=== PATIENT | male | born 1950 | race Caucasian/White ===

== ENCOUNTER 2019-10-26 06:00 | Outpatient (RCR) | payer MEDICARE, SELFPAY | END 2019-11-25 00:01 | LOC: TPT 06:00 | PROVIDERS: Family Provider Nurse Practitioner Family; Visit Provider Family Medicine | DX: M25.511 Pain in right shoulder (principal) | CPT/HCPCS: 97110 ×5; 97140 ×4; 97530; G0283 ×4 ==

== ENCOUNTER 2019-11-26 06:00 | Outpatient (RCR) | payer MEDICARE, SELFPAY | END 2019-12-08 23:00 | disposition home or self-care (01) | LOC: TPT 06:00 | PROVIDERS: Family Provider Family Medicine; PCP Family Medicine; Visit Provider Family Medicine | DX: M25.511 Pain in right shoulder (principal) | CPT/HCPCS: 97032; 97110; 97530 ==

== ENCOUNTER 2019-12-25 09:49 | Emergency (ER) | payer MEDICARE, SELFPAY ==
[2019-12-25 09:56] VITALS: BP 154/80; PULSE 98; RESP 20; TEMP 36.6; O2SAT 96; BMI 24.4
--- NOTE | 2019-12-25 10:07 | ED_ITS ---
Entered by Brian Bailey, acting as scribe for Farhan Hurtado DO HPI - Neuro Symptoms/Deficit General: Chief Complaint: Neuro Symptoms/Deficit Stated Complaint: thinks he is having a TIA Time Seen by Provider: 12/25/19 10:14 History of Present Illness: HPI Narrative: 69 yo male presents with possible stroke. Pt states that he had a brain surgery in 1975, he hasn't had issues since. Pt states that he noticed floaters and flashing in his vision. Pt states that he was having trouble forming sentences, it lasted about 20-30 minutes. Pt states that when he was driving here this morning he had tingling his arms. Pt states that this all started at7-730 this morning. Pt states that he had an episode about 1 year ago. Pts symptoms have resolved. Onset (ago): hour(s) Associated symptoms: Deny chest pain, headache(s), malaise, nausea, syncope or vomiting Review of Systems Const: Denies: fever, chills, body aches, change in appetite, change in weight, malaise or night sweats Eyes: Reports: floaters and seeing flashes ENMT: Denies: throat pain, uvular edema, enlarged tonsils, painful swallowing, mouth pain or swelling of lips/tongue Card: Denies: chest pain, palpitations, irregular heart rhythm, edema, swelling of feet/ankles, lightheadedness or syncope Resp: Denies: shortness of breath, productive cough, non-productive cough, wheezing or stridor GI: Denies: abdominal pain, nausea, vomiting, vomiting blood, coffee grounds in vomit, difficulty swallowing or heartburn/indigestion : Denies: urinary urgency, urinary hesitancy, urinary dribbling, difficulty starting urination, change in urine stream or nighttime urination Musc: Denies: neck pain, back pain, extremity pain, extremity swelling or joint pain Skin/Breast: Denies: rash, itching, redness, sensitivity to light, skin pain or skin tenderness Neuro: Denies: headache, numbness in extremities, weakness in extremities, changes in sensation, lack of coordination or difficulty walking Psych: Reports: sleeping more; Denies: anxiety, depression, mood swings, panic attacks or sleeping less Endo: Denies: excessive urination or excessive thirst Solitario/Lymph: Denies: easy bruising, easy bleeding, petechiae, purpura, enlarged lymph nodes or tender lymph nodes PFSH ED PFSH: Statuses (acute, chronic, etc) shown below reflect problem list status as previously entered and may not be historically accurate Surgical History (Updated 12/25/19 @ 10:14 by Brian Bailey) H/O brain surgery (Acute) History of hernia repair (Acute) Social History Smoking and tobacco status: never smoked Physical Exam Const: COMMON NORMALS: no apparent distress, average body habitus, oriented x3, no limitations, healthy appearing, alert and well nourished HENMT: COMMON NORMALS: normocephalic, head/scalp atraumatic, hearing grossly normal bilaterally, external ears normal, EAC's normal, TM's normal bilaterally, external nose normal, nasal mucous membranes and turbinates normal, moist oral mucous membranes, oropharynx normal, dentition normal and gingiva normal HEAD & SCALP: normocephalic and atraumatic NOSE: external nose normal and nasal mucous membranes and turbinates normal EXTERNAL EAR: Yes external ears normal EXTERNAL AUDITORY CANAL: EAC's normal TYMPANIC MEMBRANE: TM's normal bilaterally THROAT: no uvular edema Eye: COMMON NORMALS: PERRL, EOMs intact bilaterally, conjunctivae normal, no scleral icterus, no papilledema, normal visual galeana by confrontation and fundi normal bilaterally CONJUNCTIVA: Yes conjunctivae normal PUPIL: Yes PERRL DIRECT OPHTHALMOSCOPY: Yes no papilledema and Yes fundi normal bilaterally Neck/C-Spine: COMMON NORMALS: no meningeal signs and thyroid normal GENERAL: Yes normal visual inspection, Yes trachea midline and Yes anterior neck swelling THYROID: thyroid normal Chest: COMMONS NORMALS: inspection of chest normal and palpation of chest normal Resp: COMMON NORMALS: normal respiratory effort, no retractions, no use of accessory muscles, clear to auscultation bilaterally and percussion normal AUSCULTATION: clear to auscultation bilaterally PERCUSSION: percussion normal Cardio: COMMON NORMALS: regular rate and regular rhythm; negative for no murmurs RATE: regular rate RHYTHM: regular rhythm HEART SOUNDS: murmur diastolic Intensity: II/ GI: COMMON NORMALS: normal to inspection, nondistended, normoactive bowel sounds, soft to palpation, non-tender, no hepatosplenomegaly, no masses and no bruits PALPATION: Yes soft and Yes no hepatosplenomegaly : COMMON NORMALS: Yes no CVA tenderness BLADDER/KIDNEY EXAM: Yes no CVA tenderness Back/Pelvis: COMMON NORMALS: no CVA tenderness, thoracic and lumbar spine normal to inspection, no thoracic nor lumbar tenderness, thoraco-lumbar ROM normal and straight leg raise negative bilaterally Extremity: COMMON NORMALS: normal to inspection, full ROM, normal capillary refill, no joint enlargement, no clubbing, cyanosis or edema, no calf tenderness and no pedal edema Neuro: COMMON NORMALS: oriented x3 SENSORIUM/ORIENTATION: Yes alert MENINGEAL SIGNS: Yes no meningeal signs Skin: COMMON NORMALS: no rashes or lesions noted, no wounds, skin turgor normal, no jaundice, no petechiae and no mottling GENERAL SKIN EXAM: no rashes or lesions noted and turgor normal Course Vital Signs: Vital signs: Vital Signs Temperature 97.9 F 12/25/19 09:56 Pulse Rate 88 12/25/19 10:20 Respiratory Rate 17 12/25/19 10:20 Blood Pressure 134/80 12/25/19 10:20 Pulse Oximetry 95 12/25/19 10:20 MDM - Neuro Symptoms/Deficit Lab Data: Labs: Lab Results 12/25/19 12/25/19 12/25/19 Range/Units 10:15 10:15 10:15 WBC 6.5 (4.0-10.0) 10^3/ uL RBC 4.66 (4.1-5.3) 10^6/u L Hgb 14.8 (11.7-16.6) g/dL Hct 43.1 (42.0-52.0) % MCV 92.5 (80-94) fL MCH 31.8 (28.0-34.0) pg MCHC 34.3 (30.0-36.0) g/dL RDW 12.3 (12.1-15.1) % Plt Count 204 (130-400) 10^3/c mm MPV 11.6 H (7.4-10.4) fL Neut % (Auto) 55.3 % Lymph % (Auto) 33.7 % Blount % (Auto) 9.2 % Eos % (Auto) 1.2 % Baso % (Auto) 0.3 % Neut # (Auto) 3.6 (1.8-7.7) 10^3/u L Lymph # (Auto) 2.2 (0.8-4.8) 10^3/u L Blount # (Auto) 0.6 (0.2-0.9) 10^3/u L Eos # (Auto) 0.1 (0.0-0.8) 10^3/u L Baso # (Auto) 0.0 (0.0-0.1) 10^3/u L Nucleated RBC % (a uto) 0 % Nucleated RBCs # 0.0 /100WBC PT 13.30 (10.5-13.3) SECO NDS INR 0.98 (0.8-1.2) APTT 24.2 (23.9-36.7) SECO NDS Sodium 139 (136-145) mmol/L Potassium 4.0 (3.5-5.1) mmol/L Chloride 100 (98-107) mmol/L Carbon Dioxide 27 (22-29) mmol/L Anion Gap 16.0 (5-19) BUN 15 (8-23) mg/dL Creatinine 0.9 (0.7-1.2) mg/dL GFR Calculation 83.4 L (90-130) mL/min Glucose 109 H (74-106) mg/dL POC Glucose (70-110) mg/dL Calcium 9.8 (8.5-10.5) mg/dL Total Bilirubin 0.4 (0.15-1.2) mg/dL AST 26 (0-40) U/L ALT 25 (0-41) U/L Alkaline Phosphata se 77 (40-130) IU/L Troponin T Baselin e (0-15) ng/mL Troponin T 120 Min kaibab (0-15) ng/mL Delta Troponin T (0-10) ABS# Total Protein 7.8 (6.6-8.7) g/dL Albumin 4.6 (3.5-5.2) g/dL Globulin 3.2 (1.3-4.6) g/dL Urine Color (Yellow) Urine Appearance (CLEAR) Urine pH (5-7) Ur Specific Gravit y (1.005-1.030) Urine Protein (Negative) Urine Glucose (UA) (Normal) Urine Ketones (Negative) Urine Occult Blood (Negative) Urine Nitrate (Negative) Urine Bilirubin (NEGATIVE) Urine Urobilinogen (Negative) mg/dL Ur Leukocyte Ciara ase (Negative) Urine Opiates Scre en (Negative) ng/mL Ur Barbiturates Sc reen (Negative) ng/mL Ur Phencyclidine S crn (Negative) ng/mL Ur Amphetamines Sc reen (Negative) ng/mL U Benzodiazepines Scrn (Negative) ng/mL Urine Cocaine Scre en (Negative) ng/mL U Marijuana (THC) Screen (Negative) ng/mL 12/25/19 12/25/19 12/25/19 Range/Units 10:15 10:29 11:08 WBC (4.0-10.0) 10^3/ uL RBC (4.1-5.3) 10^6/u L Hgb (11.7-16.6) g/dL Hct (42.0-52.0) % MCV (80-94) fL MCH (28.0-34.0) pg MCHC (30.0-36.0) g/dL RDW (12.1-15.1) % Plt Count (130-400) 10^3/c mm MPV (7.4-10.4) fL Neut % (Auto) % Lymph % (Auto) % Blount % (Auto) % Eos % (Auto) % Baso % (Auto) % Neut # (Auto) (1.8-7.7) 10^3/u L Lymph # (Auto) (0.8-4.8) 10^3/u L Blount # (Auto) (0.2-0.9) 10^3/u L Eos # (Auto) (0.0-0.8) 10^3/u L Baso # (Auto) (0.0-0.1) 10^3/u L Nucleated RBC % (a uto) % Nucleated RBCs # /100WBC PT (10.5-13.3) SECO NDS INR (0.8-1.2) APTT (23.9-36.7) SECO NDS Sodium (136-145) mmol/L Potassium (3.5-5.1) mmol/L Chloride (98-107) mmol/L Carbon Dioxide (22-29) mmol/L Anion Gap (5-19) BUN (8-23) mg/dL Creatinine (0.7-1.2) mg/dL GFR Calculation (90-130) mL/min Glucose (74-106) mg/dL POC Glucose 102 (70-110) mg/dL Calcium (8.5-10.5) mg/dL Total Bilirubin (0.15-1.2) mg/dL AST (0-40) U/L ALT (0-41) U/L Alkaline Phosphata se (40-130) IU/L Troponin T Baselin e 11 (0-15) ng/mL Troponin T 120 Min kaibab (0-15) ng/mL Delta Troponin T (0-10) ABS# Total Protein (6.6-8.7) g/dL Albumin (3.5-5.2) g/dL Globulin (1.3-4.6) g/dL Urine Color Yellow (Yellow) Urine Appearance Clear (CLEAR) Urine pH 5 (5-7) Ur Specific Gravit y 1.010 (1.005-1.030) Urine Protein Neg (Negative) Urine Glucose (UA) Norm (Normal) Urine Ketones Negative (Negative) Urine Occult Blood Neg (Negative) Urine Nitrate Negative (Negative) Urine Bilirubin Neg (NEGATIVE) Urine Urobilinogen Norm (Negative) mg/dL Ur Leukocyte Ciara ase Negative (Negative) Urine Opiates Scre en (Negative) ng/mL Ur Barbiturates Sc reen (Negative) ng/mL Ur Phencyclidine S crn (Negative) ng/mL Ur Amphetamines Sc reen (Negative) ng/mL U Benzodiazepines Scrn (Negative) ng/mL Urine Cocaine Scre en (Negative) ng/mL U Marijuana (THC) Screen (Negative) ng/mL 12/25/19 12/25/19 Range/Units 11:08 12:11 WBC (4.0-10.0) 10^3/ uL RBC (4.1-5.3) 10^6/u L Hgb (11.7-16.6) g/dL Hct (42.0-52.0) % MCV (80-94) fL MCH (28.0-34.0) pg MCHC (30.0-36.0) g/dL RDW (12.1-15.1) % Plt Count (130-400) 10^3/c mm MPV (7.4-10.4) fL Neut % (Auto) % Lymph % (Auto) % Blount % (Auto) % Eos % (Auto) % Baso % (Auto) % Neut # (Auto) (1.8-7.7) 10^3/u L Lymph # (Auto) (0.8-4.8) 10^3/u L Blount # (Auto) (0.2-0.9) 10^3/u L Eos # (Auto) (0.0-0.8) 10^3/u L Baso # (Auto) (0.0-0.1) 10^3/u L Nucleated RBC % (a uto) % Nucleated RBCs # /100WBC PT (10.5-13.3) SECO NDS INR (0.8-1.2) APTT (23.9-36.7) SECO NDS Sodium (136-145) mmol/L Potassium (3.5-5.1) mmol/L Chloride (98-107) mmol/L Carbon Dioxide (22-29) mmol/L Anion Gap (5-19) BUN (8-23) mg/dL Creatinine (0.7-1.2) mg/dL GFR Calculation (90-130) mL/min Glucose (74-106) mg/dL POC Glucose (70-110) mg/dL Calcium (8.5-10.5) mg/dL Total Bilirubin (0.15-1.2) mg/dL AST (0-40) U/L ALT (0-41) U/L Alkaline Phosphata se (40-130) IU/L Troponin T Baselin e (0-15) ng/mL Troponin T 120 Min kaibab 9.55 (0-15) ng/mL Delta Troponin T -1.45 L (0-10) ABS# Total Protein (6.6-8.7) g/dL Albumin (3.5-5.2) g/dL Globulin (1.3-4.6) g/dL Urine Color (Yellow) Urine Appearance (CLEAR) Urine pH (5-7) Ur Specific Gravit y (1.005-1.030) Urine Protein (Negative) Urine Glucose (UA) (Normal) Urine Ketones (Negative) Urine Occult Blood (Negative) Urine Nitrate (Negative) Urine Bilirubin (NEGATIVE) Urine Urobilinogen (Negative) mg/dL Ur Leukocyte Ciara ase (Negative) Urine Opiates Scre en Negative (Negative) ng/mL Ur Barbiturates Sc reen Negative (Negative) ng/mL Ur Phencyclidine S crn Negative (Negative) ng/mL Ur Amphetamines Sc reen Negative (Negative) ng/mL U Benzodiazepines Scrn Negative (Negative) ng/mL Urine Cocaine Scre en Negative (Negative) ng/mL U Marijuana (THC) Screen Negative (Negative) ng/mL Discharge Plan Discharge Clinical Impression: Transient cerebral ischemia Qualifiers: Transient cerebral ischemia type: unspecified Qualified Code(s): G45.9 - Transient cerebral ischemic attack, unspecified Condition: Stable Prescriptions: No Action clopidogrel 75 mg tablet 75 mg PO DAILY RF: 0 simvastatin 40 mg tablet 40 mg PO DAILY RF: 0 lisinopril-hydrochlorothiazide 10-12.5 mg tablet 1 tab PO DAILY RF: 0 tadalafil 5 mg tablet 5 mg PO DAILY RF: 0 Discharge Orders: Discharge Order (Routine); Ordered 12/25/19 Ordered By: Farhan Hurtado Referrals: Nando Britton MD [Primary Care Provider] - Discharge Diet: Advance as tolerated Discharge Activity: Resume usual activity Coding Level of Care Code ED Production Line Worker for Chg Fwd Exam Problem Focused The documentation recorded by the Leo daugherty Kialy, accurately reflects the service I personally performed and the decisions made by , Farhan Hurtado, Dec 25, 2019 09:49
--- NOTE | 2019-12-25 10:15 | CT_ITS ---
WS: [id number] CT scan of the head, 12/25/2019 Clinical Data: Symptoms of Acute Stroke Comparison: CTA of the head and neck, 02/04/2018. DLP: 723.[address] scans at [facility] use at least one of these dose optimization techniques: automat ed exposure control; mA and/or kV adjustment per patient size (includes targeted exams where dose is matched to clinical indication); or iterative reconstruction. Findings: The ventricular system is normal without shift. No recent infarct or hemorrhage is seen. 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 There are no abnormal intracerebral masses. The cerebellum and brainstem are not remarkable. Bony windows of the skull and skull base show no fractures or erosions. There is a left frontal tempo ral parietal craniotomy unchanged. The mastoid air cells, internal auditory canals, sella turcica, in traorbital contents, and paranasal sinuses are unremarkable. CT/CT head wo con* [id number] Impression: 1. Negative for recent infarct or hemorrhage 2. Left frontal temporal parietal craniotomy with aneurysm clip in the left amanda vian fissure unchanged.
--- NOTE | 2019-12-25 10:16 | ECG_ITS ---
Measurements Intervals [place] Rate: 82 P: -30 ME: 169 QRS: 20 QRSD: 86 T: 35 QT: 368 QTc: 432 SINUS RHYTHM No previous ECG available for comparison Electronically Signed On 12-25-2019 11:34:34 LAND SURVEYING PARTY CHIEF by Mason Novak M.D. [id number]
[2019-12-25 10:20] VITALS: BP 134/80; PULSE 88; RESP 17; O2SAT 95
[2019-12-25 10:23] LABS: Basophils % 0.3 %; Eosinophils # 0.1 10^3/uL (0.0-0.8); Eosinophils % 1.2 %; Hematocrit 43.1 % (42.0-52.0); Hemoglobin 14.8 g/dL (11.7-16.6); Lymphocytes # 2.2 10^3/uL (0.8-4.8); Lymphocytes % 33.7 %; Mean Corpuscular HGB Conc 34.3 g/dL (30.0-36.0); Mean Corpuscular Hemoglobin 31.8 pg (28.0-34.0); Mean Corpuscular Volume 92.5 fL (80-94); Mean Platelet Volume 11.6 fL (7.4-10.4); Monocytes # 0.6 10^3/uL (0.2-0.9); Monocytes % 9.2 %; Neutrophils # 3.6 10^3/uL (1.8-7.7); Neutrophils % 55.3 %; Nucleated Red Blood Cells % 0 %; Platelet Count 204 10^3/cmm (130-400); Red Blood Count 4.66 10^6/uL (4.1-5.3); Red Cell Distribution Width 12.3 % (12.1-15.1); White Blood Count 6.5 10^3/uL (4.0-10.0)
[2019-12-25 10:34] LABS: Glucose Point of Care 102 mg/dL (70-110)
[2019-12-25 10:35] LABS: INR 0.98 (0.8-1.2)
[2019-12-25 10:36] LABS: Partial Thromboplastin Time 24.2 SECONDS (23.9-36.7)
[2019-12-25 10:42] LABS: Troponin(5th) Baseline 11 ng/mL (0-15)
[2019-12-25 10:55] LABS: Alanine Aminotransferase 25 U/L (0-41); Albumin Level 4.6 g/dL (3.5-5.2); Alkaline Phosphatase 77 IU/L (40-130); Aspartate Amino Transferase 26 U/L (0-40); Blood Urea Nitrogen 15 mg/dL (8-23); Calcium 9.8 mg/dL (8.5-10.5); Carbon Dioxide 27 mmol/L (22-29); Chloride 100 mmol/L (98-107); Globulin 3.2 g/dL (1.3-4.6); Glomerular Filtration Rate 83.4 mL/min (90-130); Glucose 109 mg/dL (74-106); Sodium 139 mmol/L (136-145); Total Bilirubin 0.4 mg/dL (0.15-1.2); Total Protein 7.8 g/dL (6.6-8.7)
[2019-12-25 11:12] LABS: Add Urine Microscopic? NO
[2019-12-25 11:27] LABS: Bilirubin Urine Neg (NEGATIVE); Blood Urine Neg (Negative); Glucose Urine UA Norm (Normal); Ketones Urine Negative (Negative); Leukocyte Esterase Urine Negative (Negative); Nitrate Urine Negative (Negative); Protein Urine Neg (Negative); Urine Appearance Clear (CLEAR); Urine Color Yellow (Yellow); Urobilinogen Urine Norm (Negative); pH Urine 5 (5-7)
[2019-12-25 11:54] LABS: Amphetamines Screen Urine Negative (Negative); Barbiturates Screen Urine Negative (Negative); Benzodiazepines Screen Urine Negative (Negative); Cocaine Screen Urine Negative (Negative); Opiate Screen Urine Negative (Negative); PCP Screen Urine Negative (Negative); THC Screen Urine Negative (Negative)
--- NOTE | 2019-12-25 12:16 | ECG_ITS ---
Measurements Intervals [place] Rate: 81 P: -27 MO: 172 QRS: 4 QRSD: 77 T: 21 QT: 372 QTc: 433 SINUS RHYTHM Compared to ECG 12/25/2019 10:31:11 No significant changes Electronically Signed On 12-25-2019 17:37:29 COW WASHER by Mason Novak M.D. [id number]
[2019-12-25 12:45] LABS: Troponin 5 2HR 9.55 ng/mL (0-15)
[2019-12-25 12:48] LABS: Troponin 5 2HR Delta -1.45 ABS# (0-10)
[2019-12-25 12:56] VITALS: BP 135/92; PULSE 82; RESP 17; O2SAT 95
--- NOTE | 2019-12-25 16:16 | ECG_ITS ---
Measurements Intervals [place] Rate: 81 P: -27 IL: 172 QRS: 4 QRSD: 77 T: 21 QT: 372 QTc: 433 SINUS RHYTHM Compared to ECG 12/25/2019 10:31:11 No significant changes [email or web address]
== END 2019-12-25 13:01 | disposition home or self-care (01) ==
PROVIDERS: Emergency Provider Family Medicine; Family Provider Family Medicine; PCP Family Medicine
DX: G45.9 Transient cerebral ischemic attack, unspecified (principal); Z79.02 Long term (current) use of antithrombotics/antiplatelets
CPT/HCPCS: 36415; 36416; 70450; 80053; 80307; 81003; 82962; 84484; 85025; 85610; 85730; 93005; 99283

== ENCOUNTER → 2020-01-14 10:20 | Outpatient (BNVA) | payer MEDICARE, SELFPAY | PROVIDERS: Family Provider Family Medicine; PCP Family Medicine; Referring Provider Family Medicine; Visit Provider Specialist | DX: I99.8 Other disorder of circulatory system (principal); Z86.73 Personal history of transient ischemic attack (TIA), and cerebral infarction without residual deficits | CPT/HCPCS: 99215 ==

== ENCOUNTER 2020-01-22 08:31 | Outpatient (CLI) | payer MEDICARE, SELFPAY ==
--- NOTE | 2020-01-22 09:00 | CT_ITS ---
WS: [id number] CTA HEAD TECHNIQUE: Contrast enhanced CTA of the head with coronal and sagittal reformatted images and maximum intensity projection (MIP) images. NASCET criteria utilized. CLINICAL INFORMATION: TIA COMPARISON: CTA head neck and CT head December 25, 2019 DLP: 1294.[address] scans at use at least one of these dose optimization techniques: automat ed exposure control; mA and/or kV adjustment per patient size (includes targeted exams where dose is matched to clinical indication); or iterative reconstruction. FINDINGS: No evidence of intracranial hemorrhage or mass effect. Ventricular system and basal cisterns are christian nt. Prior postoperative changes left frontal prior craniotomy with aneurysm clipping along the left s ylvian fissure. Associated encephalomalacia. No hydrocephalus. INTRACRANIAL CTA: Distal vertebral arteries are patent. Basilar artery is patent. Normal vascularity to the DRILL PRESS SET UP OPERATOR RADIAL territo ry bilaterally. Both ICAs are patent at the skull base. Normal vascularity to the ASIM and proximal MCA territories bi laterally. Left sylvian aneurysm clipping. No evidence of high-grade proximal stenosis or aneurysm. I ncidental venous angioma left temporal lobe. Mastoid air cells and paranasal sinuses are well aerated. Normal posterior nasopharynx. CT/CT angio head 97578 IMPRESSION: 1. No evidence of high-grade proximal stenosis or new aneurysm. 2. 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 No evidenc e of hemorrhage. Associated encephalomalacia left temporal lobe. 3. Intracranial hoh of [place] is normal. 4. Incidental venous angioma left temporal lobe.
[2020-01-22] MEDS: iohexol 350 mg/mL 100 mL Btl IV (09:29)
== END 2020-01-22 08:32 | disposition home or self-care (01) ==
LOC: RADWPI 08:34
PROVIDERS: Family Provider Family Medicine; PCP Family Medicine; Visit Provider Specialist
DX: G45.9 Transient cerebral ischemic attack, unspecified (principal); Q28.3 Other malformations of cerebral vessels
CPT/HCPCS: 70496; Q9967

== ENCOUNTER → 2020-01-26 07:52 | Outpatient (BNVA) | payer MEDICARE, SELFPAY | PROVIDERS: Family Provider Family Medicine; PCP Family Medicine; Visit Provider Specialist | DX: R56.9 Unspecified convulsions (principal) | CPT/HCPCS: 95816 ==

== ENCOUNTER 2020-04-13 06:00 | Outpatient (RCR) | payer MEDICARE, SELFPAY | END 2020-04-25 23:59 | disposition home or self-care (01) | LOC: TPT 06:00 | PROVIDERS: PCP Family Medicine; Referring Provider Orthopaedic Surgery; Visit Provider Orthopaedic Surgery | DX: Z47.89 Encounter for other orthopedic aftercare (principal); M75.21 Bicipital tendinitis, right shoulder | CPT/HCPCS: 97110; 97140; 97161 ==

== ENCOUNTER 2020-04-26 06:00 | Outpatient (RCR) | payer MEDICARE, SELFPAY | END 2020-05-25 23:59 | disposition home or self-care (01) | LOC: TPT 06:00 | PROVIDERS: PCP Family Medicine; Visit Provider Orthopaedic Surgery | DX: M75.21 Bicipital tendinitis, right shoulder (principal) | CPT/HCPCS: 97110; 97140 ==

== ENCOUNTER → 2020-05-05 07:45 | Outpatient (BNVA) | payer MEDICARE, SELFPAY | PROVIDERS: PCP Family Medicine; Visit Provider Specialist | DX: R29.90 Unspecified symptoms and signs involving the nervous system (principal); R56.9 Unspecified convulsions; I35.0 Nonrheumatic aortic (valve) stenosis | CPT/HCPCS: 99213 ==

== ENCOUNTER 2020-08-06 05:39 | Emergency (ER) | payer MEDICARE, SELFPAY ==
[2020-08-06 05:49] VITALS: BP 129/77; PULSE 80; RESP 16; TEMP 36.8; O2SAT 97; BMI 23.7
--- NOTE | 2020-08-06 06:08 | XR_ITS ---
WS: [id number] Portable AP upright chest, 08/06/2020 Clinical Data: dyspnea/cough Comparison: None. Findings: No nodules, masses or effusions are seen. The heart is normal. The pulmonary vascularity is not increased. No pneumonia or pneumothorax is seen. The aortic arch and descending aorta are tortuo us. No definite rib fractures are seen. XR/XR chest 1V portable [id number] Impression: Atherosclerosis.
--- NOTE | 2020-08-06 06:08 | W.ED.FALL ---
HPI - Fall General: Chief Complaint: Fall Stated Complaint: fall/rib pain Time Seen by Provider: 08/06/20 05:47 History of Present Illness: HPI Narrative: 69-year-old male comes in complaining of right-sided lower rib pain. He states he fell on some gravel yesterday woke up early this morning with severe pain with any movement. He is not had any cough no hemoptysis he denies any other injury when he fell. He simply fell by stumbling. complaint: fall Onset (ago): hour(s) Fall from: standing Place fall occurred: home Loss of consciousness: None Prolonged down time: no Symptoms prior to fall: none Context: tripped/slipped Location of injury: chest (Right lower ribs) Severity: severe Quality: sharp Associated symptoms-after fall: Reports chest pain; Denies abdominal pain, confusion, difficulty walking, headache(s), hematuria, lightheadedness, neck pain, numbness, short of breath, vertigo or weakness Review of Systems Const: Denies: fever(s), chills, body aches, change in appetite, fatigue or malaise Card: Reports: chest pain; Denies: lightheadedness Resp: Denies: dyspnea, productive cough or non-productive cough GI: Denies: abdominal pain : Denies: hematuria Musc: Denies: neck pain Neuro: Denies: headache(s), difficulty walking, vertigo or confusion PFS ED PFSH: Medical History Aortic stenosis Hypertension Mitral valve regurgitation Tricuspid valve regurgitation Surgical History H/O brain surgery History of hernia repair S/P aortic aneurysm repair Family History Other CAD (coronary artery disease) Cancer Hypertension Denies family history of Diabetes Stroke Social History Smoking and tobacco status: never smoked Alcohol intake: current Alcohol intake frequency: holidays/special occasions only History of recent travel: No Physical Exam Const: COMMON NORMALS: no acute distress GENERAL APPEARANCE: cooperative and comfortable ORIENTATION/CONSCIOUSNESS: Yes awake, Yes oriented to person, Yes oriented to place and Yes oriented to time HENMT: COMMON NORMALS: normocephalic, atraumatic and hearing grossly normal bilaterally HEAD & SCALP: normocephalic and atraumatic Eye: COMMON NORMALS: Equal, round and reactive pupils present, EOMs intact bilaterally, conjunctivae normal and no scleral icterus CONJUNCTIVA: Yes conjunctivae normal PUPIL: Yes Equal, round and reactive pupils present Neck/C-Spine: COMMON NORMALS: no JVD Chest: OTHER: Tenderness at lower ribs on the right side no crepitus no subcutaneous air Resp: COMMON NORMALS: normal respiratory effort, No retractions, No use of accessory muscles and clear to auscultation bilaterally AUSCULTATION: clear to auscultation bilaterally Cardio: COMMON NORMALS: no JVD, regular rate, regular rhythm and No murmurs present (Cardio) RATE: regular rate RHYTHM: regular rhythm GI: COMMON NORMALS: Soft to palpation and No hepatosplenomegaly present AUSCULTATION: Yes normoactive bowel sounds PALPATION: Yes Soft to palpation, No Tenderness to palpation present (GI), No Guarding due to palpation present (GI) and Yes No hepatosplenomegaly present Extremity: COMMON NORMALS: normal to inspection, capillary refill normal, no clubbing, cyanosis or edema, no calf tenderness and no pedal edema Neuro: SENSORIUM/ORIENTATION: Yes oriented to person, Yes oriented to place and Yes oriented to time Skin: COMMON NORMALS: no rashes or lesions noted GENERAL SKIN EXAM: no rashes or lesions noted Course Vital Signs: Vital signs: Vital Signs Temperature 98.3 F 08/06/20 05:49 Pulse Rate 87 08/06/20 06:24 Respiratory Rate 16 08/06/20 06:24 Blood Pressure 132/76 08/06/20 06:24 Pulse Oximetry 96 08/06/20 06:24 Discharge Plan Discharge Patient Disposition: Home Clinical Impression: Contusion of rib on right side Condition: Stable Prescriptions: New hydrocodone-acetaminophen 5-325 mg tablet 1 tab PO Q6H PRN (Reason: pain) Qty: 20 RF: 0 diclofenac sodium 75 mg tablet,delayed release (DR/EC) 75 mg PO Q12H PRN (Reason: pain) Qty: 20 RF: 0 No Action cholecalciferol (vitamin D3) 25 mcg (1,000 unit) capsule 1,000 unit PO DAILY RF: 0 clopidogrel 75 mg tablet 75 mg PO DAILY RF: 0 simvastatin 40 mg tablet 40 mg PO DAILY RF: 0 lisinopril-hydrochlorothiazide 10-12.5 mg tablet 1 tab PO DAILY RF: 0 tadalafil 5 mg tablet 5 mg PO DAILY RF: 0 Discharge Orders: Discharge Order (Routine); Ordered 08/06/20 Ordered By: Gurpreet Mcdonald Coding Level of Care Code ED Honing Machine Try Out Setter for Lizette Fwd Exam Comprehensive
[2020-08-06] MEDS: ketorolac 30 mg/mL INJ 15 MG IVP (06:23)
[2020-08-06] MEDS: ondansetron 2 mg/ML SDV 2 mL 4 MG IVP (06:23)
[2020-08-06 06:24] VITALS: BP 132/76; PULSE 87; RESP 16; O2SAT 96
[2020-08-06 06:58] VITALS: BP 121/85; PULSE 75; RESP 18; O2SAT 98
--- NOTE | 2020-08-06 07:12 | PC.NURSE ---
Pt requested pain meds before leaving. Consulted Dr Mcdonald and agreed to give Morphine 4 mg IVP.
[2020-08-06 07:17] VITALS: RESP 16
[2020-08-06] MEDS: morphine 4 mg/mL SDV 1 mL IVP (07:17)
== END 2020-08-06 07:27 | disposition home or self-care (01) ==
PROVIDERS: Emergency Provider Family Medicine; PCP Family Medicine
DX: S20.20XA Contusion of thorax, unspecified, initial encounter (principal); Z79.02 Long term (current) use of antithrombotics/antiplatelets; W19.XXXA Unspecified fall, initial encounter; I10 Essential (primary) hypertension
CPT/HCPCS: 12345; 71045; 96374; 96375; 96376; 99282; 99283; J1885; J2270; J2405

== ENCOUNTER → 2022-06-01 08:12 | Outpatient (BNVA) | payer MEDICARE, SELFPAY | PROVIDERS: PCP Family Medicine; Visit Provider Nurse Practitioner Family | DX: I35.0 Nonrheumatic aortic (valve) stenosis (principal); I10 Essential (primary) hypertension | CPT/HCPCS: 99214 ==

== ENCOUNTER 2022-06-07 14:11 | Outpatient (CLI) | payer MEDICARE, SELFPAY ==
--- NOTE | 2022-06-07 15:15 | USCV_ITS ---
Xavi Pennington Age: 71 Gender: M : 1950 Exam Date: 06/07/2022 15:06 Ordering Phys: Jace Pacehco MD Technologist: Phyllis Arnold Exam Location: [facility] [place] Indication: valvular insufficiency BP: 130 / 78 HR: 83 Rhythm: Sinus Technical Quality: Adequate MEASUREMENTS (Male / Female) Normal Values 2D ECHO LV Diastolic Diameter PLAX 4.2 cm 4.2 - 5.9 / 3.9 - 5.3 cm LV Systolic Diameter PLAX 2.0 cm IVS Diastolic Thickness 1.2 cm 0.6 - 1.0 / 0.6 - 0.9 cm IVS Systolic Thickness 1.5 cm LVPW Diastolic Thickness 0.9 cm 0.6 - 1.0 / 0.6 - 0.9 cm LVPW Systolic Thickness 1.9 cm LV Ejection Fraction 2D Teich 84.6 % LV Ejection Fraction MOD 2C 57.1 % LV Ejection Fraction 2C AL 57.4 % LA Diameter 2.7 cm LA Width 2.7 cm LA Height 3.7 cm RA Width 2.9 cm RA Height 3.8 cm Aorta at Sinotubular Diameter 3.0 cm IVC Diameter 0.8 cm DOPPLER AV Peak Velocity 105.3 cm/s LVOT Peak Velocity 94.7 cm/s MV Peak Velocity 99.0 cm/s MV Area PHT 3.1 cm squared Mitral E to A Ratio 1.2 MV E' Velocity 43.4 cm/s Mitral E to MV E' Ratio 9.0 Mitral E to LV E' Lateral Ratio 6.8 Mitral E to LV E' Septal Ratio 13.3 TR Peak Velocity 89.0 cm/s TR Peak Gradient 3.2 mmHg Right Atrial Pressure 3.0 mmHg Pulmonary Artery Systolic Pressu 6.2 mmHg PV Peak Velocity 67.0 cm/s RV Acceleration Time 0.1 s FINDINGS Left Ventricle Normal left ventricular size and systolic function, EF 57 %. No regional wall motion abnormalities. Right Ventricle The right ventricle is normal in size and function. Right Atrium The right atrium is normal in size. Left Atrium The left atrium is normal in size. Mitral Valve Thickened mitral valve. Grade 3 prolapse of the posterior mitral leaflet. At least moderate eccentric mitral regurgitation with the regurgitant jet directed anteriorly Aortic Valve No gross abnormalities noted Tricuspid Valve No gross abnormalities noted Pulmonic Valve Pulmonic valve not well visualized. Pericardium Normal pericardium without effusion. Aorta Normal aortic annulus size. IVC Inferior vena cava not visualized. CONCLUSIONS Normal left ventricular size and systolic function, EF 57 %. No regional wall motion abnormalities. Thickened mitral valve. Grade 2 prolapse of the posterior mitral leaflet. At least moderate eccentric mitral regurgitation with the regurgitant jet directed anteriorly. There is no pericardial effusion. There are no intracardiac masses. Dr Chase Gtz MD FAC (Electronically Signed) Final Date: 08 June 2022 09:17 S
== END 2022-06-07 14:12 | disposition home or self-care (01) ==
PROVIDERS: PCP Family Medicine; Visit Provider Family Medicine
DX: I38 Endocarditis, valve unspecified (principal); I05.9 Rheumatic mitral valve disease, unspecified
CPT/HCPCS: 93306

== ENCOUNTER → 2022-12-07 10:21 | Outpatient (BNVA) | payer MEDICARE, SELFPAY | PROVIDERS: PCP Family Medicine; Visit Provider Internal Medicine Cardiovascular Disease | DX: I34.1 Nonrheumatic mitral (valve) prolapse (principal); I10 Essential (primary) hypertension; I34.0 Nonrheumatic mitral (valve) insufficiency; I60.9 Nontraumatic subarachnoid hemorrhage, unspecified | CPT/HCPCS: 99214 ==

== ENCOUNTER 2023-05-28 10:43 | Outpatient (CLI) | payer MEDICARE, SELFPAY ==
--- NOTE | 2023-05-28 11:15 | USCV_ITS ---
Xavi Pennington Age: 72 Gender: M : 1950 Exam Date: 05/28/2023 11:08 Ordering Phys: Chase Gtz MD ([email or web address]) Technologist: JOHN Exam Location: [facility] [place] Indication: MVP, MVR BP: 136 / 82 HR: 64 Rhythm: Sinus Technical Quality: Adequate MEASUREMENTS (Male / Female) Normal Values 2D ECHO LVOT Diameter 2.0 cm LV Ejection Fraction MOD 2C 69.2 % LV Ejection Fraction 2C AL 68.4 % LA Diameter 3.1 cm LA Width 3.6 cm LA Height 4.4 cm RA Width 2.9 cm RA Height 3.3 cm Aorta at Sinotubular Diameter 3.0 cm IVC Diameter 1.7 cm M-MODE Aortic Annulus Diameter 3.1 cm LA Ao Ratio MM 1.0 MV E Point Septal Separation 0.5 cm DOPPLER AV Peak Velocity 118.7 cm/s LVOT Peak Velocity 121.0 cm/s AV Area Cont Eq vti 3.0 cm squared AV Area Cont Eq pk 3.2 cm squared MV Peak Velocity 121.0 cm/s MV Area PHT 4.4 cm squared Mitral E to A Ratio 1.1 MV E' Velocity 56.5 cm/s Mitral E to MV E' Ratio 9.2 Mitral E to LV E' Lateral Ratio 8.5 Mitral E to LV E' Septal Ratio 10.2 TR Peak Velocity 262.3 cm/s TR Peak Gradient 27.5 mmHg TR Mean Velocity 206.2 cm/s TR Mean Gradient 19.4 mmHg TR Velocity Time Integral 74.7 cm Right Atrial Pressure 3.0 mmHg Pulmonary Artery Systolic Pressu 30.5 mmHg PV Peak Velocity 100.0 cm/s RV Acceleration Time 0.1 s RV Ejection Time 0.3 s RV AcT/ET 0.4 FINDINGS Left Ventricle Normal left ventricular size and systolic function, EF 68 %. No regional wall motion abnormalities. Right Ventricle The right ventricle is normal in size and function. Right Atrium The right atrium is normal in size. Left Atrium Mildly increased left atrial size. Mitral Valve Thickened mitral valve. Mild prolapse of the posterior mitral valve leaflet. Mild mitral valve regurgitation. Aortic Valve No gross abnormalities noted Tricuspid Valve Trace tricuspid valve regurgitation. Estimated pulmonary artery peak systolic pressure 31 mmHg Pulmonic Valve Structurally normal pulmonic valve. Pericardium Normal pericardium without effusion. Aorta Normal aortic annulus size. IVC The inferior vena cava appears normal. CONCLUSIONS Normal left ventricular size and systolic function, EF 68 %. No regional wall motion abnormalities. Mildly increased left atrial size. Thickened mitral valve. Mild prolapse of the posterior mitral valve leaflet. Mild mitral valve regurgitation Trace tricuspid valve regurgitation. Estimated pulmonary artery peak systolic pressure 31 mmHg. There is no pericardial effusion. There are no intracardiac masses. Compared to the previous study from 06/07/2022 the mitral valve prolapse and regurgitation appear to be less severe Dr Chase Gtz MD [facility] (Electronically Signed) Final Date: 28 May 2023 18:12 S
== END 2023-05-28 10:44 | disposition home or self-care (01) ==
LOC: RAD 10:44
PROVIDERS: PCP Family Medicine; Visit Provider Internal Medicine Cardiovascular Disease
DX: R06.09 Other forms of dyspnea (principal); I51.7 Cardiomegaly; I34.0 Nonrheumatic mitral (valve) insufficiency
CPT/HCPCS: 93306

== ENCOUNTER → 2023-07-31 10:51 | Outpatient (BNVA) | payer MEDICARE, SELFPAY | PROVIDERS: PCP Family Medicine; Visit Provider Internal Medicine Cardiovascular Disease | DX: I08.2 Rheumatic disorders of both aortic and tricuspid valves (principal); I10 Essential (primary) hypertension | CPT/HCPCS: 99213 ==

== ENCOUNTER 2023-09-11 08:17 | Emergency (ER) | payer MEDICARE, SELFPAY ==
[2023-09-11 08:21] VITALS: BP 163/58; PULSE 69; RESP 18; TEMP 36.8; O2SAT 97; BMI 24.0
--- NOTE | 2023-09-11 08:22 | ECG_ITS ---
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 Measurements Intervals [place] Rate: 66 P: -20 KS: 156 QRS: 27 QRSD: 78 T: 39 QT: 391 QTc: 413 Interpretive Statements SINUS RHYTHM Compared to ECG 12/25/2019 12:43:08 No significant changes Electronically Signed On 09-11-2023 12:17:29 CDT by Penny Castaneda M.D. [id number]
--- NOTE | 2023-09-11 08:31 | CT_ITS ---
WS: [id number] CT HEAD TECHNIQUE: Noncontrast CT of the head obtained from the skullbase to the vertex. CLINICAL INFORMATION: [place], right arm tag-like, mild aphasia COMPARISON: 2019 DLP: 970.[address] scans at [facility] use at least one of these dose optimization techniques: automated e xposure control; mA and/or kV adjustment per patient size (includes targeted exams where dose is matc hed to clinical indication); or iterative reconstruction. FINDINGS: Evidence of prior LEFT MCA territory aneurysm clips. Postoperative changes LEFT frontoparietal cranio rishabh. Mild small vessel changes. Moderate parenchymal volume loss. Intracranial vascular calcificatio n. Paranasal sinuses and mastoid air cells are well aerated. Normal visualized soft tissues. IMPRESSION: 1. No evidence of intracranial hemorrhage or mass effect. 2. 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 3. No acute intracranial findings.
[2023-09-11 09:04] VITALS: BP 163/58; PULSE 65; RESP 26; O2SAT 95
--- NOTE | 2023-09-11 09:05 | W.ED.NEUROSD ---
HPI - Neuro Symptoms/Deficit General: Chief Complaint: Neuro Symptoms/Deficit Stated Complaint: stroke like symptoms Time Seen by Provider: 09/11/23 08:17 Source: patient and family Mode of arrival: ambulatory History of Present Illness: 72-year-old male presents emergency room had a brief episode this morning with tingling in his right arm he was confused disoriented difficulty with finding words and some brief visual changes he saw small spots in his visions. By the time he arrived here it is completely resolved. On exam he has an NIH of 0 per the nurses evaluation I found the same. Patient denies chest or abdominal pain. History of previous aneurysm in 1977 for which he had a craniotomy and clips were applied. Reading his previous neurology notes he has had identical episodes previously. Dr. Baird thought that these are actually seizures rather than TIAs. 2 hours after the episode this morning he is completely symptom-free, although he does not recall much of the episode at all. His supplies most of the history. Onset (ago): hour(s) (2) Timing confirmed by: spouse Location: speech and right arm History of same: Yes Severity: mild Quality: tingling Exacerbating factors: none Context: sudden onset On Anticoagulants: No Associated symptoms: Deny chest pain, cough, diaphoresis, fevers/chills, headache(s), anorexia, malaise, nausea, seizures, short of breath, syncope, tingling, vertigo, vomiting or weakness Treatments Prior to Arrival: none Review of Systems Const: Denies: fever(s), chills, malaise or diaphoresis Card: Denies: chest pain or syncope Resp: Denies: dyspnea GI: Denies: abdominal pain, nausea or vomiting : Denies: dysuria, urinary frequency or urinary urgency Musc: Denies: neck pain or back pain Skin/Breast: Denies: rash Neuro: Denies: headache(s) or vertigo PFSH ED PFSH: Medical History Aortic stenosis History of TIA (transient ischemic attack) Hypertension Mitral valve regurgitation Tricuspid valve regurgitation Surgical History H/O brain surgery History of hernia repair S/P aortic aneurysm repair Family History Other CAD (coronary artery disease) Cancer Hypertension Denies family history of Diabetes Stroke Social History Smoking and tobacco/nicotine status: never used tobacco/nicotine Alcohol intake: current Alcohol intake frequency: holidays/special occasions only Substance/Drug Use: never NIH stroke score NIHSS: Level Of Consciousness - 1a: 0 Level Of Consciousness Questions - 1b: Both Correct Level Of Consciousness Commands - 1c: Both Correct Best Gaze - 2: Normal Visual [place] - 3: No Visual Loss Facial Palsy - 4: Normal Motor Arm Right - 5: No Drift Motor Arm Left - 5: No Drift Motor Leg Right - 6: No Drift Motor Leg Left - 6: No Drift Limb Ataxia - 7: Absent Sensory - 8: Normal Best Language - 9: No Aphasia Dysarthia - 10: Normal Extinction And Inattention - 11: 0 Score: Total Score: 0 Physical Exam Const: COMMON NORMALS: no acute distress GENERAL APPEARANCE: cooperative and comfortable ORIENTATION/CONSCIOUSNESS: Yes awake, Yes oriented to person, Yes oriented to place and Yes oriented to time HENMT: COMMON NORMALS: normocephalic, atraumatic and hearing grossly normal bilaterally HEAD & SCALP: normocephalic and atraumatic Resp: COMMON NORMALS: normal respiratory effort, No retractions, No use of accessory muscles and clear to auscultation bilaterally AUSCULTATION: clear to auscultation bilaterally Cardio: COMMON NORMALS: regular rate, regular rhythm and No murmurs present (Cardio) RATE: regular rate RHYTHM: regular rhythm GI: COMMON NORMALS: Soft to palpation and No hepatosplenomegaly present AUSCULTATION: Yes normoactive bowel sounds PALPATION: Yes Soft to palpation, No Tenderness to palpation present (GI), No Guarding due to palpation present (GI) and Yes No hepatosplenomegaly present Extremity: COMMON NORMALS: normal to inspection, capillary refill normal, no clubbing, cyanosis or edema, no calf tenderness and no pedal edema Neuro: SENSORIUM/ORIENTATION: Yes oriented to person, Yes oriented to place and Yes oriented to time Skin: COMMON NORMALS: no rashes or lesions noted GENERAL SKIN EXAM: no rashes or lesions noted Course Vital Signs: Vital signs: Vital Signs Temperature 98.2 F 09/11/23 08:21 Pulse Rate 82 09/11/23 11:23 Respiratory Rate 24 H 09/11/23 11:23 Blood Pressure 121/82 09/11/23 11:23 Pulse Oximetry 92 09/11/23 11:23 Oxygen Delivery Me thod Room Air 09/11/23 10:14 MDM - Neuro Symptoms/Deficit Medical Decision Making Based on description of events today and based on Dr. Baird's previous evaluation similar events suspect he had a seizure this morning there is no evidence of acute CVA CT head was negative. He has had these episodes in the past (several years ago Dr. Baird evaluated and felt they were seizures but did not feel he was necessarily a candidate for antiseizure medications since there not happening with a great deal of frequency. We will discharge patient home no change at this time, follow-up with neurology to reevaluate return if has further problems. Medical Records I reviewed the patient's medical records. Lab Data I reviewed the patient's lab results. 09/11/23 09:45 09/11/23 08:31 Laboratory Results WBC 5.75 10^3/uL (3.29-11.43) 09/11/23 09:45 Corrected WBC Cancelled 09/11/23 08:31 RBC 4.31 10^6/uL (3.85-5.65) 09/11/23 09:45 Hgb 13.70 g/dL (11.27-16.99) 09/11/23 09:45 Hct 41.9 % (37-53) 09/11/23 09:45 MCV 97.2 fl (82-101) 09/11/23 09:45 MCH 31.8 pg (27-33) 09/11/23 09:45 MCHC 32.7 g/dL (30-55) 09/11/23 09:45 RDW 12.5 % (12.1-15.1) 09/11/23 09:45 Plt Count 183 10^3/cmm (157-399) 09/11/23 09:45 MPV 11.7 fL (7.4-10.4) H 09/11/23 09:45 Gran % Cancelled 09/11/23 08:31 Neut % (Auto) 60.2 % 09/11/23 09:45 Lymph % (Auto) 28.5 % 09/11/23 09:45 [place] % (Auto) 10.3 % 09/11/23 09:45 Eos % (Auto) 0.5 % 09/11/23 09:45 Baso % (Auto) 0.3 % 09/11/23 09:45 Neut # (Auto) 3.46 10^3/uL (1.8-7.7) 09/11/23 09:45 Lymph # (Auto) 1.6 10^3/uL (0.8-4.8) 09/11/23 09:45 [place] # (Auto) 0.6 10^3/uL (0.2-0.9) 09/11/23 09:45 Eos # (Auto) 0.0 10^3/uL (0.0-0.8) 09/11/23 09:45 Baso # (Auto) 0.0 10^3/uL (0.0-0.1) 09/11/23 09:45 Absolute Gran (auto) Cancelled 09/11/23 08:31 Nucleated RBC % (auto) 0 % 09/11/23 09:45 Nucleated RBCs # 0.0 /100WBC 09/11/23 09:45 Sodium 139 mmol/L (136-145) 09/11/23 08:31 Potassium 3.9 mmol/L (3.5-5.1) 09/11/23 08:31 Chloride 100 mmol/L (98-107) 09/11/23 08:31 Carbon Dioxide 30 mmol/L (22-29) H 09/11/23 08:31 Anion Gap 12.9 (5-19) 09/11/23 08:31 BUN 13 mg/dL (8-23) 09/11/23 08:31 Creatinine 0.8 mg/dL (0.7-1.2) 09/11/23 08:31 GFR Calculation Not Reportable 09/11/23 08:31 Glucose 99 mg/dL (65-115) 09/11/23 08:31 Calculated Osmolality 288 mOsm/kg (285-295) 09/11/23 08:31 Calcium 9.3 mg/dL (8.5-10.5) 09/11/23 08:31 Total Bilirubin 0.5 mg/dL (0.15-1.2) 09/11/23 08:31 AST 27 U/L (0-40) 09/11/23 08:31 ALT 22 U/L (0-41) 09/11/23 08:31 Alkaline Phosphatase 74 U/L (40-130) 09/11/23 08:31 Total Protein 7.8 g/dL (6.6-8.7) 09/11/23 08:31 Albumin 4.6 g/dL (3.5-5.2) 09/11/23 08:31 Globulin 3.2 g/dL (1.3-4.6) 09/11/23 08:31 All radiology interpretation(s) finalized by discharge Discharge Plan Discharge Patient Disposition: Home Clinical Impression: Seizure Condition: Stable Prescriptions: No Action cholecalciferol (vitamin D3) 25 mcg (1,000 unit) capsule 1,000 unit PO QPM tadalafil 5 mg tablet 5 mg PO QPM acetaminophen [Tylenol] 325 mg tablet 325 mg PO QID PRN (Reason: Pain) lisinopril-hydrochlorothiazide 20-25 mg tablet 1 tab PO DAILY Qty: 90 4RF clopidogrel 75 mg tablet 75 mg PO DAILY Qty: 90 3RF Calcium 500 500 mg calcium (1,250 mg) Tablet 500 mg PO QPM Multivitamin 50 Plus Tablet 1 tab PO QPM vitamin P34-sizai acid 0.5-1 mg Tablet 1 tab PO QPM [place] 3 Fish Oil 684-1,200 mg Capsule,Delayed Release(Dr/Ec) 1 cap PO QPM simvastatin 40 mg tablet 40 mg PO QPM metoprolol succinate 25 mg tablet extended release 24 hr 25 mg PO BID Discharge Orders: Discharge ED (Routine); Ordered 09/11/23 Ordered By: Gurpreet Mcdonald Referrals: Jace Pacheco MD [Primary Care Provider] - Discharge Diet: Usual diet Discharge Activity: Limit activity as instructed Patient Instructions: Opioid Safety, Pain Management Activity Restrictions/Additional Instructions: You are seen today for a brief episode this morning with difficulty with word finding. Suspect these are similar to the episode he had previously Dr. Baird had felt more seizures. Recommend he contact her office for follow-up. You should not drive until cleared by Dr. Baird. Coding Level of Care Code ED Legal Counsel for Lizette Barry
[2023-09-11 09:07] LABS: Alanine Aminotransferase 22 U/L (0-41); Albumin Level 4.6 g/dL (3.5-5.2); Alkaline Phosphatase 74 U/L (40-130); Aspartate Amino Transferase 27 U/L (0-40); Blood Urea Nitrogen 13 mg/dL (8-23); Calcium 9.3 mg/dL (8.5-10.5); Carbon Dioxide 30 mmol/L (22-29); Chloride 100 mmol/L (98-107); Globulin 3.2 g/dL (1.3-4.6); Glucose 99 mg/dL (65-115); Osmolality Calculated 288 mOsm/kg (285-295); Sodium 139 mmol/L (136-145); Total Bilirubin 0.5 mg/dL (0.15-1.2); Total Protein 7.8 g/dL (6.6-8.7)
[2023-09-11 09:10] LABS: Anion Gap 12.9 (5-19); Potassium 3.9 mmol/L (3.5-5.1)
[2023-09-11 09:57] LABS: Basophils % 0.3 %; Eosinophils % 0.5 %; Hematocrit 41.9 % (37-53); Lymphocytes # 1.6 10^3/uL (0.8-4.8); Lymphocytes % 28.5 %; Mean Corpuscular HGB Conc 32.7 g/dL (30-55); Mean Corpuscular Hemoglobin 31.8 pg (27-33); Mean Corpuscular Volume 97.2 fl (82-101); Mean Platelet Volume 11.7 fL (7.4-10.4); Monocytes # 0.6 10^3/uL (0.2-0.9); Monocytes % 10.3 %; Neutrophils # 3.46 10^3/uL (1.8-7.7); Neutrophils % 60.2 %; Nucleated Red Blood Cells % 0 %; Platelet Count 183 10^3/cmm (157-399); Red Blood Count 4.31 10^6/uL (3.85-5.65); Red Cell Distribution Width 12.5 % (12.1-15.1); White Blood Count 5.75 10^3/uL (3.29-11.43)
[2023-09-11 10:14] VITALS: PULSE 64; RESP 23; O2SAT 96
[2023-09-11 11:23] VITALS: BP 121/82; PULSE 82; RESP 24; O2SAT 92
== END 2023-09-11 11:26 | disposition home or self-care (01) ==
PROVIDERS: Emergency Provider Family Medicine; PCP Family Medicine
DX: R56.9 Unspecified convulsions (principal); Z79.02 Long term (current) use of antithrombotics/antiplatelets; Z86.73 Personal history of transient ischemic attack (TIA), and cerebral infarction without residual deficits; I10 Essential (primary) hypertension
CPT/HCPCS: 36415; 70450; 80053; 85025; 93005; 99285

== ENCOUNTER 2023-09-14 11:19 | Outpatient (CLI) | payer MEDICARE, SELFPAY ==
--- NOTE | 2023-09-14 11:29 | XR_ITS ---
WS: [id number] Right hand, 3 views 09/14/2023 Clinical Data: ARTHRITIS OF R HAND Comparison: None. Findings: No fractures or dislocations are seen. There is osteoarthritic change of the right thumb IP joint and right hand second through fifth fingers, PIP and DIP joints. The soft tissues are unrema rkable. No periarticular demineralization is seen. 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
== END 2023-09-14 11:20 | disposition home or self-care (01) ==
PROVIDERS: PCP Family Medicine; Visit Provider Family Medicine
DX: M19.041 Primary osteoarthritis, right hand (principal)
CPT/HCPCS: 73130

== ENCOUNTER → 2023-11-07 12:31 | Outpatient (BNVA) | payer MEDICARE, SELFPAY | PROVIDERS: PCP Family Medicine; Visit Provider Specialist | DX: R29.90 Unspecified symptoms and signs involving the nervous system (principal); G31.84 Mild cognitive impairment of uncertain or unknown etiology; G40.219 Localization-related (focal) (partial) symptomatic epilepsy and epileptic syndromes with complex partial seizures, intractable, without status epilepticus | CPT/HCPCS: 96116; 99205 ==

== ENCOUNTER → 2023-12-20 07:40 | Outpatient (BNVA) | payer MEDICARE, SELFPAY | PROVIDERS: PCP Family Medicine; Visit Provider Specialist | DX: G40.219 Localization-related (focal) (partial) symptomatic epilepsy and epileptic syndromes with complex partial seizures, intractable, without status epilepticus (principal); I60.9 Nontraumatic subarachnoid hemorrhage, unspecified; G31.84 Mild cognitive impairment of uncertain or unknown etiology | CPT/HCPCS: 95812; 95816 ==

== ENCOUNTER → 2024-03-18 13:03 | Outpatient (BNVA) | payer MEDICARE, SELFPAY | PROVIDERS: PCP Family Medicine; Visit Provider Specialist | DX: G30.9 Alzheimer's disease, unspecified (principal); F02.80 Dementia in other diseases classified elsewhere, unspecified severity, without behavioral disturbance, psychotic disturbance, mood disturbance, and anxiety | CPT/HCPCS: 99214; 99215 ==

== ENCOUNTER 2024-04-11 09:45 | Outpatient (CLI) | payer MEDICARE, SELFPAY ==
--- NOTE | 2024-04-11 09:50 | XR_ITS ---
WS: [id number] Right shoulder, 3 views, 04/11/2024 Clinical Data: PAIN IN R SHOULDER Comparison: Right shoulder, 10/14/2019 Findings: No fractures or dislocations are seen. There is minimal osteoarthritis of the lesser tuberosity as it articulates with the inferior glenoid rim. The AC joint shows minimal spurring and narrowing. The ad jacent right clavicle, right scapula and ribs are normal. The soft tissues are unremarkable. XR/XR shoulder RT min 2V* [id number] Impression: Mild osteoarthritis of the right glenohumeral joint and AC joint.
== END 2024-04-11 09:46 | disposition home or self-care (01) ==
LOC: RAD 09:48
PROVIDERS: PCP Family Medicine; Visit Provider Family Medicine
DX: M19.011 Primary osteoarthritis, right shoulder (principal); M25.511 Pain in right shoulder
CPT/HCPCS: 73030

== ENCOUNTER → 2024-07-21 09:55 | Outpatient (BNVA) | payer MEDICARE, SELFPAY | PROVIDERS: PCP Family Medicine; Visit Provider Internal Medicine Cardiovascular Disease | DX: I34.0 Nonrheumatic mitral (valve) insufficiency (principal); I10 Essential (primary) hypertension; I34.1 Nonrheumatic mitral (valve) prolapse; E78.5 Hyperlipidemia, unspecified; Z98.890 Other specified postprocedural states; Z86.79 Personal history of other diseases of the circulatory system | CPT/HCPCS: 99214 ==

== ENCOUNTER 2024-07-30 08:45 | Outpatient (CLI) | payer MEDICARE, SELFPAY ==
--- NOTE | 2024-07-30 08:53 | XR_ITS ---
WS: [id number] Examination: XR knee RT 3V* [id number] Reason for Exam: R KNEE JOINT PAIN Date: 07/30/2024 Comparison: None. Findings: The bone density is maintained. There is no destruction There is no displaced fracture or dislocation Small amount of joint fluid is suspected. No severe arthritic changes identified. XR/XR knee RT 3V* [id number] Impression: No acute bony abnormality is identified.
== END 2024-07-30 08:46 | disposition home or self-care (01) ==
PROVIDERS: PCP Family Medicine; Visit Provider Nurse Practitioner Family
DX: M25.561 Pain in right knee (principal)
CPT/HCPCS: 73562

== ENCOUNTER 2024-11-26 06:30 | Outpatient (RCR) | payer MEDICARE, SELFPAY | END 2024-12-26 23:59 | disposition home or self-care (01) | LOC: APT 06:30 | PROVIDERS: Visit Provider Orthopaedic Surgery | DX: M23.91 Unspecified internal derangement of right knee (principal) | CPT/HCPCS: 97161 ==

== ENCOUNTER 2024-12-27 06:00 | Outpatient (RCR) | payer MEDICARE, SELFPAY | END 2025-01-23 23:59 | disposition home or self-care (01) | LOC: APT 06:00 | PROVIDERS: Visit Provider Orthopaedic Surgery | DX: M76.71 Peroneal tendinitis, right leg (principal) | CPT/HCPCS: 97110; 97112 ==

== ENCOUNTER → 2025-07-29 10:05 | Outpatient (BNVA) | payer MEDICARE, SELFPAY | PROVIDERS: PCP Family Medicine; Visit Provider Internal Medicine Cardiovascular Disease | DX: I34.0 Nonrheumatic mitral (valve) insufficiency (principal); I34.1 Nonrheumatic mitral (valve) prolapse; I10 Essential (primary) hypertension; E78.5 Hyperlipidemia, unspecified; Z79.02 Long term (current) use of antithrombotics/antiplatelets; Z98.890 Other specified postprocedural states; Z86.73 Personal history of transient ischemic attack (TIA), and cerebral infarction without residual deficits | CPT/HCPCS: 99214 ==